=== PATIENT | male | born 1960 | race Caucasian/White ===

== ENCOUNTER 2017-09-26 06:03 | Observation (INO) | payer MEDICAID ==
--- NOTE | 2017-09-26 06:13 | ED PDOC ---
Arrival/HPI - General Time Seen by Provider: 09/26/17 06:12 Historian: Patient, Family - History of Present Illness Narrative History of Present Illness (Text): 09/26/17 06:13 Eve Prado is a 57 year old male, whose past medical history includes hypertension, who presents to the emergency department accompanied by family complaining of abdominal pain. Patient states, via daughter acting as musculoskeletal physiotherapist , he woke up this morning with epigastric abdominal pain, nausea, vomiting, and dizziness. Patient also reports subjective fever. Patient denies any chest pain , shortness of breath, diarrhea, urinary symptoms, back pain, neck pain, headache, or any other complaints. Symptom Onset: Gradual Symptom Course: Unchanged Activities at Onset: Light Context: Home Past Medical History - Provider Review Nursing Documentation Reviewed: Yes Family/Social History - Physician Review Nursing Documentation Reviewed: Yes Family/Social History: Unknown Family HX Allergies/Home Meds Allergies/Adverse Reactions: Allergies No Known Allergies Allergy (Verified 09/26/17 06:23) Home Medications: Home Meds Medication Instructions Recorded Confirmed Gemfibrozil [Lopid] 1 tab PO BID 09/26/17 09/26/17 Multivitamin with Iron [Tab-A-Mary 1 tab PO DAILY 09/26/17 09/26/17 with Iron] amLODIPine [Norvasc] 1 tab PO DAILY 09/26/17 09/26/17 Review of Systems - Physician Review All systems were reviewed & negative as marked: Yes - Review of Systems Constitutional: Fevers Eyes: Normal ENT: Normal Respiratory: Normal. absent: SOB, Cough Cardiovascular: Normal Gastrointestinal: Abdominal Pain, Nausea, Vomiting. absent: Diarrhea Genitourinary Male: Normal. absent: Dysuria, Frequency, Hematuria, Urinary Output Changes Musculoskeletal: Normal. absent: Back Pain, Neck Pain Skin: Normal. absent: Rash Neurological: Dizziness. absent: Headache Endocrine: Normal Hemo/Lymphatic: Normal Psychiatric: Normal Physical Exam Vital Signs Reviewed: Yes Vital Signs Temp Pulse Resp BP Pulse Ox 09/26/17 11:22 77 17 132/81 95 09/26/17 09:31 81 18 114/60 96 09/26/17 07:54 84 18 142/88 95 09/26/17 06:20 98.1 F 88 18 162/90 H 94 L Appearance: Positive for: Well-Appearing, Non-Toxic, Comfortable Pain Distress: None Mental Status: Positive for: Alert and Oriented X 3 - Systems Exam Head: Present: Atraumatic, Normocephalic Pupils: Present: PERRL Extroacular Muscles: Present: EOMI Conjunctiva: Present: Normal Mouth: Present: Moist Mucous Membranes Neck: Present: Normal Range of Motion Respiratory/Chest: Present: Clear to Auscultation, Good Air Exchange. No: Respiratory Distress, Accessory Muscle Use Cardiovascular: Present: Regular Rate and Rhythm, Normal S1, S2. No: Murmurs Abdomen: Present: Tenderness (Epigastric tenderness). No: Distention, Peritoneal Signs Back: Present: Normal Inspection Upper Extremity: Present: Normal Inspection. No: Cyanosis, Edema Lower Extremity: Present: Normal Inspection. No: Edema Neurological: Present: GCS=15, CN II-XII Intact, Speech Normal Skin: Present: Warm, Dry, Normal Color. No: Rashes Psychiatric: Present: Alert, Oriented x 3, Normal Insight, Normal Concentration Medical Decision Making ED Course and Treatment: 09/26/17 06:13 Impression: 57 year old male complaining of epigastric pain, nausea, vomiting, diarrhea, and subjective fever. Plan: -- EKG -- CXR -- Labs, lipase, amylase, cardiac enzymes, blood cultures -- Urinalysis -- IV fluids -- Morphine -- Zofran -- Pepcid -- Reassess and disposition Progress Notes: Reviewed EKG, NSR at [address] LAFB. Non-specific ST/T wave changes. - Lab Interpretations Lab Results: 09/26/17 06:40 09/26/17 06:40 Lab Results 09/26/17 12:50: Urine Color Yellow, Urine Appearance Clear, Urine pH 7.0, Ur Specific [place] 1.020, Urine Protein Negative, Urine Glucose (UA) Negative, Urine Ketones Negative, Urine Blood Negative, Urine Nitrate Negative, Urine Bilirubin Negative, Urine Urobilinogen 0.2, Ur Leukocyte Esterase Negative 09/26/17 06:40: Sodium 143, Potassium 3.7, Chloride 104, Carbon Dioxide 23, Anion Gap 20, BUN 10, Creatinine 0.6 L, Est GFR ( Amer) > 60, Est GFR ( Non-Af Amer) > 60, Random Glucose 156 H, Calcium 9.0, Total Bilirubin 0.4, AST 24, ALT 43, Alkaline Phosphatase 69, Lactate Dehydrogenase 374, Total Creatine Kinase 65, Troponin I < 0.01, Total Protein 7.4, Albumin 4.4, Globulin 3.1, Albumin/Globulin Ratio 1.4, Amylase 82, Lipase 37 09/26/17 06:40: PT 11.8, INR 1.03, APTT 24.4 L 09/26/17 06:40: WBC 3.1 L, RBC 5.53, Hgb 14.5, Hct 43.5, MCV 78.7 L, MCH 26.2, MCHC 33.3, RDW 13.2, Plt Count 175, MPV 11.0, Gran % 61.8, Lymph % (Auto) 29.9, [place] % (Auto) 7.4 H, Eos % (Auto) 0.6 L, Baso % (Auto) 0.3, Gran # 1.92, Lymph # (Auto) 0.9 L, [place] # (Auto) 0.2, Eos # (Auto) 0.0, Baso # (Auto) 0.01 - RAD Interpretation Radiology Orders: 09/26/17 06:26 CHEST PORTABLE [RAD] Stat 09/26/17 08:04 ABDOMEN COMPLETE [US] Stat 09/26/17 12:10 ABD & PELVIS IV CONTRAST ONLY [CT] Stat 09/26/17 12:12 HEAD W/O CONTRAST [CT] Stat - EKG Interpretation Interpreted by ED Physician: Yes Type: 12 lead EKG - Medication Orders Current Medication Orders: Sodium Chloride (Sodium Chloride 0.9%) 1,000 mls @ 100 mls/hr IV .Q10H STA Stop: 09/26/17 16:24 Last Admin: 09/26/17 07:35 Dose: 100 mls/hr eMAR Start Stop Document 09/26/17 07:35 HI (Rec: 09/26/17 07:35 HI [id number]) Intravenous Solution Start Date 09/26/17 Start Time 07:35 Discontinued Medications Famotidine (Pepcid) 20 mg IVP STAT STA Stop: 09/26/17 06:26 Last Admin: 09/26/17 07:35 Dose: 20 mg IVP Administration Document 09/26/17 07:35 HI (Rec: 09/26/17 07:35 HI [id number]) Charges for Administration # of IVP Administrations 1 Metoclopramide HCl (Reglan) 10 mg IVP STAT STA Stop: 09/26/17 12:10 Last Admin: 09/26/17 12:17 Dose: 10 mg IVP Administration Document 09/26/17 12:17 HI (Rec: 09/26/17 12:17 HI [id number]) Charges for Administration # of IVP Administrations 1 Morphine Sulfate (Morphine) 2 mg IVP STAT STA Stop: 09/26/17 06:26 Last Admin: 09/26/17 07:36 Dose: 2 mg MAR Pain Assessment Document 09/26/17 07:36 HI (Rec: 09/26/17 07:36 HI [id number]) Pain Reassessment Is this a pain reassessment? No Sleep Is patient sleeping during reassessment? No Presence of Pain Presence of Pain Yes Location Pain Location Body Site Abdomen IVP Administration Document 09/26/17 07:36 HI (Rec: 09/26/17 07:36 HI [id number]) Charges for Administration # of IVP Administrations 1 Ondansetron HCl (Zofran Inj) 4 mg IVP STAT STA Stop: 09/26/17 06:26 Last Admin: 09/26/17 07:35 Dose: 4 mg IVP Administration Document 09/26/17 07:35 HI (Rec: 09/26/17 07:35 HI [id number]) Charges for Administration # of IVP Administrations 1 - Transfer of Care Patient signed out to Dr:: janki labs and dispo - Scribe Statement The provider has reviewed the documentation as recorded by the Scribpeter Santana Provider Scribe Attestation: All medical record entries made by the Scribe were at my direction and personally dictated by me. I have reviewed the chart and agree that the record accurately reflects my personal performance of the history, physical exam, medical decision making, and the department course for this patient. I have also personally directed, reviewed, and agree with the discharge instructions and disposition. Disposition/Present on Arrival - Present on Arrival Any Indicators Present on Arrival: No - Disposition Have Diagnosis and Disposition been Completed?: Yes Diagnosis: Abdominal pain Disposition Time: 07:00 Condition: FAIR Referrals: Fidencio Alvarez MD [Primary Care Provider] - Follow up with primary Forms: NicOx (Syrian)
[2017-09-26] MEDS ORDERED: Morphine 2 mg/ml ISec IVP STA (06:25)
[2017-09-26] MEDS ORDERED: Sodium Chloride 0.9% 1,000 ML IV STA (06:25)
[2017-09-26 07:10] LABS: BASO # 0.01 K/mm3 (0.0-2.0); BASO % 0.3 % (0.0-3.0); EOS % 0.6 % (1.5-5.0); GRAN # 1.92 (1.4-6.5); GRAN % 61.8 % (50.0-68.0); HEMOGLOBIN 14.5 g/dL (14.0-18.0); LYMPH # 0.9 (1.2-3.4); LYMPH % 29.9 % (22.0-35.0); MEAN CELL VOLUME 78.7 fl (80.0-105.0); MEAN CORPUSCULAR HEMOGLOBIN 26.2 pg (25.0-35.0); MEAN CORPUSCULAR HGB CONC 33.3 g/dl (31.0-37.0); MONO # 0.2 (0.1-0.6); MONO % 7.4 % (1.0-6.0); RBC 5.53 10^6/uL (3.5-6.1); RED CELL DISTRIBUTION WIDTH 13.2 % (11.5-14.5); WHITE BLOOD COUNT 3.1 10^3/ul (4.5-11.0)
[2017-09-26 07:20] LABS: ALB/GLOB RATIO 1.4 (1.1-1.8); ALBUMIN 4.4 g/dL (3.0-4.8); ALT/SGPT 43 U/L (7-56); AMYLASE 82 U/L (35-125); AST/SGOT 24 U/L (17-59); BLOOD UREA NITROGEN 10 mg/dL (7-21); GFR AFRICAN-AMERICAN > 60; GFR NON-AFRICAN AMERICAN > 60; LIPASE 37 U/L (23-300)
[2017-09-26 07:24] LABS: INR 1.03; PARTIAL THROMBOPLASTIN TIME 24.4 Seconds (25.1-36.5); PROTHROMBIN TIME 11.8 SECONDS (9.4-12.5)
[2017-09-26 07:30] LABS: TROPONIN I < 0.01 ng/mL
--- NOTE | 2017-09-26 08:22 | ED PDOC ---
Physical Exam Vital Signs Reviewed: Yes Vital Signs Temp Pulse Resp BP Pulse Ox 09/26/17 15:15 84 16 133/70 97 09/26/17 11:22 77 17 132/81 95 09/26/17 09:31 81 18 114/60 96 09/26/17 07:54 84 18 142/88 95 09/26/17 06:20 98.1 F 88 18 162/90 H 94 L Temperature: Afebrile Blood Pressure: Hypertensive Pulse: Regular Respiratory Rate: Normal - Systems Exam Abdomen: Present: Tenderness (tenderness in epigastric and RUQ of abdomen) Medical Decision Making ED Course and Treatment: ED Course and Treatment: 09/26/17 07:00 Case endorsed to me by Dr. Gerard for pending Chest X-Ray/reassessment/ disposition 09/26/17 07:45 I reevaluated patient. Patient's symptoms are improving, but patient is still having epigastric abdominal pain. Patient no longer feels nauseous and is going to get abdominal ultrasound. R/o biliary colic and acute cholecystitis. Translation provided by daughter, as per patient's request. (Daughter is 18 years old) Ultrasound of abdomen reviewed by radiologist, shows: Creator : Matthew Hernadez MD IMPRESSION: Mild hepatomegaly with diffuse fatty infiltration of the liver. No evidence of cholelithiasis or cholecystitis. Chest X-ray reviewed by radiologist, shows: Creator : Matthew Hernadez MD IMPRESSION: No active disease. 09/26/17 11:15 Patient was feeling much better but still a little dizzy. Abdomen soft and not tender. He would like something to eat. Food ordered. 09/26/17 12:12 Patient consistently dizzy. He vomited in the ED. Reglan IV ordered. CT Head and Abdomen ordered. 09/26/17 15:33 Patient continued to feel dizzy. No improvement with antivert reglan and meclizine. CT Head negative. CT Abd report reviewed. Patient states that it started with dizzines, then nausea and then abdominal pain. He will be admitted for persistent dizziness r/o CVA. 09/26/17 15:52 Case was discussed with Dr. Rangel for persistent dizziness r/o cva and consult placed for Dr. Gonzalez division supervisor. I informed Dr. Gonzalez of the case. - Lab Interpretations Lab Results: 09/26/17 06:40 09/26/17 06:40 Lab Results 09/26/17 12:50: Urine Color Yellow, Urine Appearance Clear, Urine pH 7.0, Ur Specific [place] 1.020, Urine Protein Negative, Urine Glucose (UA) Negative, Urine Ketones Negative, Urine Blood Negative, Urine Nitrate Negative, Urine Bilirubin Negative, Urine Urobilinogen 0.2, Ur Leukocyte Esterase Negative 09/26/17 06:40: Sodium 143, Potassium 3.7, Chloride 104, Carbon Dioxide 23, Anion Gap 20, BUN 10, Creatinine 0.6 L, Est GFR ( Amer) > 60, Est GFR ( Non-Af Amer) > 60, Random Glucose 156 H, Calcium 9.0, Total Bilirubin 0.4, AST 24, ALT 43, Alkaline Phosphatase 69, Lactate Dehydrogenase 374, Total Creatine Kinase 65, Troponin I < 0.01, Total Protein 7.4, Albumin 4.4, Globulin 3.1, Albumin/Globulin Ratio 1.4, Amylase 82, Lipase 37 09/26/17 06:40: PT 11.8, INR 1.03, APTT 24.4 L 09/26/17 06:40: WBC 3.1 L, RBC 5.53, Hgb 14.5, Hct 43.5, MCV 78.7 L, MCH 26.2, MCHC 33.3, RDW 13.2, Plt Count 175, MPV 11.0, Gran % 61.8, Lymph % (Auto) 29.9, [place] % (Auto) 7.4 H, Eos % (Auto) 0.6 L, Baso % (Auto) 0.3, Gran # 1.92, Lymph # (Auto) 0.9 L, [place] # (Auto) 0.2, Eos # (Auto) 0.0, Baso # (Auto) 0.01 - RAD Interpretation Radiology Orders: 09/26/17 06:26 CHEST PORTABLE [RAD] Stat 09/26/17 08:04 ABDOMEN COMPLETE [US] Stat 09/26/17 12:10 ABD & PELVIS IV CONTRAST ONLY [CT] Stat 09/26/17 12:12 HEAD W/O CONTRAST [CT] Stat Nondestructive Tester: Radiologist - Medication Orders Current Medication Orders: Sodium Chloride (Sodium Chloride 0.9%) 1,000 mls @ 100 mls/hr IV .Q10H STA Stop: 09/26/17 16:24 Last Admin: 09/26/17 07:35 Dose: 100 mls/hr eMAR Start Stop Document 09/26/17 07:35 HI (Rec: 09/26/17 07:35 HI [id number]) Intravenous Solution Start Date 09/26/17 Start Time 07:35 Meclizine HCl (Antivert) 25 mg PO STAT STA Stop: 09/26/17 15:40 Discontinued Medications Famotidine (Pepcid) 20 mg IVP STAT STA Stop: 09/26/17 06:26 Last Admin: 09/26/17 07:35 Dose: 20 mg IVP Administration Document 09/26/17 07:35 HI (Rec: 09/26/17 07:35 HI [id number]) Charges for Administration # of IVP Administrations 1 Metoclopramide HCl (Reglan) 10 mg IVP STAT STA Stop: 09/26/17 12:10 Last Admin: 09/26/17 12:17 Dose: 10 mg IVP Administration Document 09/26/17 12:17 HI (Rec: 09/26/17 12:17 HI [id number]) Charges for Administration # of IVP Administrations 1 Morphine Sulfate (Morphine) 2 mg IVP STAT STA Stop: 09/26/17 06:26 Last Admin: 09/26/17 07:36 Dose: 2 mg MAR Pain Assessment Document 09/26/17 07:36 HI (Rec: 09/26/17 07:36 HI [id number]) Pain Reassessment Is this a pain reassessment? No Sleep Is patient sleeping during reassessment? No Presence of Pain Presence of Pain Yes Location Pain Location Body Site Abdomen IVP Administration Document 09/26/17 07:36 HI (Rec: 09/26/17 07:36 HI [id number]) Charges for Administration # of IVP Administrations 1 Ondansetron HCl (Zofran Inj) 4 mg IVP STAT STA Stop: 09/26/17 06:26 Last Admin: 09/26/17 07:35 Dose: 4 mg IVP Administration Document 09/26/17 07:35 HI (Rec: 09/26/17 07:35 HI [id number]) Charges for Administration # of IVP Administrations 1 - Scribe Statement The provider has reviewed the documentation as recorded by the Scribe Sara Anaya All medical record entries made by the Scribe were at my direction and personally dictated by me. I have reviewed the chart and agree that the record accurately reflects my personal performance of the history, physical exam, medical decision making, and the department course for this patient. I have also personally directed, reviewed, and agree with the discharge instructions and disposition. Disposition/Present on Arrival - Present on Arrival Any Indicators Present on Arrival: No History of DVT/PE: No History of Uncontrolled Diabetes: No Urinary Catheter: No History of Decub. Ulcer: No History Surgical Site Infection Following: None - Disposition Have Diagnosis and Disposition been Completed?: Yes Diagnosis: Abdominal pain, Dizziness Disposition Time: 15:36 Patient Plan: Observation Patient Problems: Current Active Problems Problem Status Onset Abdominal pain Acute Dizziness Acute Condition: FAIR Referrals: Fidencio Alvarez MD [Primary Care Provider] - Follow up with primary Forms: ASSET4 (Y[place]i) NIHSS Scale ([place]) Time Performed: 15:37 - How Severe is the [place] Baseline Level of Consciousness: 0=Alert LOC to Questions: 0=Both comments correct LOC to commands: 0=Obeys both correctly Best Gaze: 0=Normal Visual: 0=No visual loss Facial: 0=Normal Motor Arm - Left: 0=No drift Motor Arm - Right: 0=No drift Motor Leg - Left: 0=No drift Motor Leg - Right: 0=No drift Limb Ataxia: 0=Absent Sensory: 0=Normal Best Language: 0=No aphasia Dysarthia: 0=Normal articulation Extinction & Inattention (Neglect): 0=Normal, no object Score: 0 Risk Level: No Stroke Risk rTPA Inclusion/Exclusion - Refusal of Treatment Patient Refused Treatment: No - Inclusion Criteria for Altepase Patient is 18 years or Older: Yes The Clinical Diagnosis of Ischemic Stroke That is Causing a Potentially Disabling Neurological Deficit: No Time of Onset is Well Established to be Less Than 270 Minute Before Treatment Would Begin: No Risk/Benefit Discussed With Patient/Family Member Present: No
--- NOTE | 2017-09-26 09:08 | US ---
Date of service: 09/26/2017 HISTORY: ruq abd pain COMPARISON: None. TECHNIQUE: Sonographic evaluation of the abdomen. FINDINGS: LIVER: Measures 19.9 cm. Diffusely increased echogenicity of the liver parenchyma. Consistent with fatty infiltration. No mass. Smooth contour. No biliary ductal dilatation. GALLBLADDER: Unremarkable. No gallstones. COMMON BILE DUCT: Measures 6 mm. No stones. No dilatation. PANCREAS: Unremarkable as visualized. No mass. No ductal dilatation. RIGHT KIDNEY: Measures cm. 11.4 LEFT KIDNEY: Measures 11.6cm. Normal echogenicity. No calculus, mass, or hydronephrosis. SPLEEN: Normal in size and contour. No mass. AORTA: No aneurysmal dilatation. IVC: Unremarkable. OTHER FINDINGS: None. IMPRESSION: Mild hepatomegaly with diffuse fatty infiltration of the liver. No evidence of cholelithiasis or cholecystitis.
--- NOTE | 2017-09-26 09:17 | RAD ---
Date of service: 09/26/2017 HISTORY: abd pain COMPARISON: No prior. FINDINGS: LUNGS: No active pulmonary disease. PLEURA: No significant pleural effusion identified, no pneumothorax apparent. CARDIOVASCULAR: Normal. OSSEOUS STRUCTURES: No significant abnormalities. VISUALIZED UPPER ABDOMEN: Normal. OTHER FINDINGS: None. IMPRESSION: No active disease.
--- NOTE | 2017-09-26 10:08 | CARD ---
APPROVED REPORT Date of service: 09/26/2017 EKG Measurement Heart [id number] <Conclusion> Normal sinus rhythm Left anterior fascicular block Abnormal ECG
[2017-09-26 13:06] LABS: URINE APPEARANCE CLEAR (CLEAR); URINE BILIRUBIN NEGATIVE (NEGATIVE); URINE BLOOD NEGATIVE (NEGATIVE); URINE COLOR YELLOW (YELLOW); URINE GLUCOSE (UA) NEGATIVE (NEGATIVE); URINE LEUKOCYTE ESTERASE NEGATIVE Leu/uL (NEGATIVE); URINE PROTEIN NEGATIVE mg/dL (<30 mg/dL); URINE UROBILINOGEN 0.2 E.U./dL (<1 E.U./dL)
--- NOTE | 2017-09-26 14:48 | CT ---
Date of service: 09/26/2017 PROCEDURE: CT HEAD WITHOUT CONTRAST. HISTORY: dizziness COMPARISON: None available. TECHNIQUE: Axial computed tomography images were obtained through the head/brain without intravenous contrast. Radiation dose: Total exam DLP = 884 mGy-cm. This CT exam was performed using one or more of the following dose reduction techniques: Automated exposure control, adjustment of the mA and/or kV according to patient size, and/or use of iterative reconstruction technique. FINDINGS: HEMORRHAGE: No intracranial hemorrhage. BRAIN: No mass effect or edema. No atrophy or chronic microvascular ischemic changes. VENTRICLES: Unremarkable. No hydrocephalus. CALVARIUM: Unremarkable. PARANASAL SINUSES: Unremarkable as visualized. No significant inflammatory changes. MASTOID AIR CELLS: Unremarkable as visualized. No inflammatory changes. OTHER FINDINGS: None. IMPRESSION: No acute findings
--- NOTE | 2017-09-26 14:54 | CT ---
Date of service: 09/26/2017 PROCEDURE: CT Abdomen and Pelvis with contrast HISTORY: abd pain/vomitng COMPARISON: None. TECHNIQUE: Contrast dose: 150 cc of Omni 350 Radiation dose: Total exam DLP = 1515 mGy-cm. This CT exam was performed using one or more of the following dose reduction techniques: Automated exposure control, adjustment of the mA and/or kV according to patient size, and/or use of iterative reconstruction technique. FINDINGS: LOWER THORAX: Unremarkable. LIVER: Unremarkable. No gross lesion or ductal dilatation. GALLBLADDER AND BILE DUCTS: Unremarkable. PANCREAS: Unremarkable. No gross lesion or ductal dilatation. SPLEEN: Unremarkable. ADRENALS: Unremarkable. No mass. KIDNEYS AND URETERS: Unremarkable. No hydronephrosis. No solid mass. VASCULATURE: Unremarkable. No aortic aneurysm. BOWEL: Unremarkable. No obstruction. No gross mural thickening. APPENDIX: Normal appendix. PERITONEUM: Unremarkable. No free fluid. No free air. LYMPH NODES: Unremarkable. No enlarged lymph nodes. BLADDER: Unremarkable. REPRODUCTIVE: Unremarkable. BONES: No acute fracture. OTHER FINDINGS: None. IMPRESSION: No acute findings
--- NOTE | 2017-09-26 17:50 | CP.PCM.HP ---
<Justice Mujica - Last Filed: 09/26/17 20:16> History of Present Illness - History of Present Illness History of Present Illness: Justice Mujica D.O PGY-1, H & P for CC: Dizziness and vomiting HPI: Patient is a 57 year old male with PMH of HTN and HLD presenting to the ED with dizziness and vomiting that started last night. Patient states that he went to sleep last night and woke up feeling dizzy and started to vomit. He states that he vomited 8 times last night and 10 times today. He describes the vomitus to be non-bloody and yellowish in color. Patient admits to having 3 episodes of the same symptoms in the past 2 years and the last episode was last year. He states that the symptoms usually resolves after 3 days of taking medications from his doctor. Patient admits to have blurry vision when he is moving from a sitting to standing position and also ringing in both ears that accompanies his dizziness. Patient denies fever, chills, chest pain, shortness of breath, diarrhea, and urinary symptoms. 12 point ROS negative except as indicated in HPI Past medical history: HTN, HLD Surgical History: Hernia repair Allergies: NKDA Social History: Denies alcohol, tobacco, and drug use. Works at a fast food restaurant. Family History: Father has HTN Medications: Gemfibrozil 600mg BID, Meclizine 25mg TID, Norvasc 5mg QD, Multivitamin PMD: Dr. Alvarez Pension Consultant: [facility] [id number] Present on Admission - Present on Admission Any Indicators Present on Admission: No History of DVT/PE: No History of Uncontrolled Diabetes: No Urinary Catheter: No Decubitus Ulcer Present: No Past Patient History - Infectious Disease Hx of Infectious Diseases: None - Past Social History Smoking Status: Never Smoked - CARDIAC Hx Hypertension: Yes - PSYCHIATRIC Hx Substance Use: No - SURGICAL HISTORY Hx Surgeries: Yes Other/Comment: cant recall what sx he had - ANESTHESIA Hx Anesthesia: Yes Hx Anesthesia Reactions: No Hx Malignant Hyperthermia: No Meds Allergies/Adverse Reactions: Allergies Allergy/AdvReac Type Severity Reaction Status Date / Time No Known Allergies Allergy Verified 09/26/17 06:23 Physical Exam - Constitutional Appears: No Acute Distress - Head Exam Head Exam: ATRAUMATIC, NORMAL INSPECTION - Eye Exam Eye Exam: Normal appearance, PERRL - ENT Exam ENT Exam: Mucous Membranes Moist - Respiratory Exam Respiratory Exam: Clear to Auscultation Bilateral. absent: Rales, Rhonchi, Wheezes - Cardiovascular Exam Cardiovascular Exam: REGULAR RHYTHM, +S1, +S2. absent: Gallop, Rubs, Systolic Murmur - GI/Abdominal Exam GI & Abdominal Exam: Normal Bowel Sounds, Soft, Tenderness Additional comments: Epigastric tenderness - Extremities Exam Extremities exam: Positive for: normal inspection. Negative for: calf tenderness, pedal edema - Neurological Exam Neurological exam: Alert, CN II-XII Intact, Oriented x3 Additional comments: Muscle strength 5/5 and sensations intact in both upper and lower extremities. Normal speech. - Psychiatric Exam Psychiatric exam: Normal Affect, Normal Mood - Skin Skin Exam: Dry, Intact, Warm Results - Vital Signs Recent Vital Signs: Last Vital Signs Temp 98.1 F 09/26/17 06:20 Pulse 83 09/26/17 17:47 Resp 16 09/26/17 17:47 BP 146/91 H 09/26/17 17:47 Pulse Ox 95 09/26/17 17:47 - Labs Result Diagrams: 09/26/17 06:40 09/26/17 06:40 Assessment & Plan - Assessment and Plan (Free Text) Assessment: Patient is a 57 year old male with PMH of HTN and HLD and is admitted for dizziness and vomiting. Plan: Dizziness and vomiting - most likely secondary to BPPV vs vertigo - need to rule out CVA - Lipid panel, HbA1C ordered - PT/OT - Neurology consulted, Dr. Gonzalez - c/w Meclizine 25mg PO TID - passed bedside speech and swallow - started ASA 81mg - Zofran 4mg IV Q6H PRN - Brain MRI ordered - Carotid duplex ordered - orthostatic vitals ordered History of hypertension - c/w home medication Norvasc 5mg QD - continue to monitor blood pressure History of hyperlipidemia - continue with home medication Gemfibrozil 600mg BID - Lipid panel ordered GI/DVT prophylaxis: Protonix and SCD's Patient seen, case reviewed, and plan approved by attending physician, Dr. Brennan <Luis Brennan - Last Filed: 09/27/17 06:51> Results - Vital Signs Recent Vital Signs: Last Vital Signs Temp 98.1 F 09/26/17 19:15 Pulse 79 09/27/17 06:00 Resp 18 09/26/17 19:15 BP 151/101 H 09/26/17 20:09 Pulse Ox 95 09/26/17 17:47 - Labs Result Diagrams: 09/26/17 06:40 09/26/17 06:40 Attending/Attestation - Attestation I have personally seen and examined this patient.: Yes I have fully participated in the care of the patient.: Yes I have reviewed all pertinent clinical information: Yes Notes (Text): 09/26/17 57 year old male with past medical history of hypertension and dyslipidemia who presents with complaint of dizziness with intractable nausea/vomiting. CT head was negative for acute findings. CT abd/pelvis was negative as well. US abdomen showed fatty liver. Neurology evaluation was appreciated. PT evaluation and MRI brain study is ordered. Obtain orthostatics. Patient is on meclizine prn. Continue with home medications. Coontinue with diet as tolerated. Luis Brennan MD Hospitalist.
--- NOTE | 2017-09-26 21:39 | CP.PCM.CON ---
History of Present Illness - History of Present Illness History of Present Illness: Tigre Ashley PGY2 Neurology Consult Note for Dr. Gonzalez Mr. Prado is a 57-year-old [place] male with a PMH of HTN, HLD and 2 prior episodes of otitis media who presented to the ED with positional dizziness and vomiting 1 day. The patient states that he feels comfortable when laying down on his left shoulder, but when he tries to get up or lay on his back, he begins to feel dizzy, experiences blurriness of vision, ringing in his ears and becomes nauseous and starts vomiting. His vomitus is not biliary and nonbloody. He denies any new foods or changes in diet habits. In fact the patient states that he is currently fasting for jainism purposes. The patient states that he had 2 episodes of "inflammation of the middle ear" before and was treated once in [place] and once at his [facility] office with one drug for his dizziness and another for vomiting; he doesn't recall the names. The patient denies any fevers, chills, travel outside the country, sick contacts, chest pain or shortness of breath, abdominal pain, diarrhea or any urinary symptoms, or any numbness and tingling in the extremities. A 12 point ROS was reviewed and is otherwise unremarkable. PMD: Dr. Alvarez PMH: As above PSH: Hernia repair 2 Meds: As per MAR, reviewed Allergies: NKDA SHx: Former EtOH use: Denied tobacco or drug use. Works at [employer] FHx: Father HTN Review of Systems - Review of Systems All systems: reviewed and no additional remarkable complaints except (as per HPI ) Past Patient History - Infectious Disease Hx of Infectious Diseases: None - Past Medical History & Family History Past Medical History?: Yes Past Family History: Reviewed and not pertinent - Past Social History Smoking Status: Never Smoked Alcohol: None Drugs: Denies Home Situation {Lives}: With Family - CARDIAC Hx Hypercholesterolemia: Yes Hx Hypertension: Yes - PULMONARY Hx Respiratory Disorders: No - NEUROLOGICAL Hx Neurological Disorder: No - HEENT Hx HEENT Problems: Yes (otitis media x2 ) - RENAL Hx Chronic Kidney Disease: No - ENDOCRINE/METABOLIC Hx Endocrine Disorders: No - HEMATOLOGICAL/ONCOLOGICAL Hx Blood Disorders: No - INTEGUMENTARY Hx Dermatological Problems: No - MUSCULOSKELETAL/RHEUMATOLOGICAL Hx Musculoskeletal Disorders: No - GASTROINTESTINAL Hx Gastrointestinal Disorders: No - GENITOURINARY/GYNECOLOGICAL Hx Genitourinary Disorders: No - PSYCHIATRIC Hx Psychophysiologic Disorder: No Hx Substance Use: No - SURGICAL HISTORY Hx Surgeries: Yes Hx Herniorrhaphy: Yes (x2) - ANESTHESIA Hx Anesthesia: Yes Hx Anesthesia Reactions: No Hx Malignant Hyperthermia: No Meds Allergies/Adverse Reactions: Allergies Allergy/AdvReac Type Severity Reaction Status Date / Time No Known Allergies Allergy Verified 09/26/17 06:23 - Medications Medications: Current Medications Acetaminophen (Tylenol 325mg Tab) 325 mg PO DAILY PRN PRN Reason: Headache Last Admin: 09/26/17 20:08 Dose: 325 mg Amlodipine Besylate (Norvasc) 5 mg PO DAILY [facility] Aspirin (Aspirin Chewable) 81 mg PO DAILY [facility] Last Admin: 09/26/17 18:03 Dose: 81 mg Gemfibrozil (Lopid) 600 mg PO BID [facility] Meclizine HCl (Antivert) 25 mg PO TID [facility] Meclizine HCl (Antivert) 25 mg PO ONCE ONE Stop: 09/27/17 02:01 Multivitamins/Minerals (Therapeutic-M Tab) 1 tab PO DAILY [facility] Ondansetron HCl (Zofran Inj) 4 mg IVP Q6H PRN PRN Reason: Nausea/Vomiting Pantoprazole Sodium (Protonix Inj) 40 mg IVP DAILY [facility] Physical Exam - Constitutional Appears: Well, Non-toxic, In Acute Distress - Head Exam Head Exam: ATRAUMATIC, NORMAL INSPECTION - Eye Exam Eye Exam: EOMI, Normal appearance, PERRL. absent: Nystagmus Pupil Exam: NORMAL ACCOMODATION - ENT Exam ENT Exam: Normal Exam - Neck Exam Neck exam: Positive for: Normal Inspection. Negative for: Meningismus - Respiratory Exam Respiratory Exam: NORMAL BREATHING PATTERN. absent: Respiratory Distress - Cardiovascular Exam Cardiovascular Exam: RRR, +S1, +S2 - GI/Abdominal Exam GI & Abdominal Exam: Soft. absent: Distended, Tenderness - Extremities Exam Extremities exam: Positive for: normal inspection - Back Exam Back exam: NORMAL INSPECTION - Neurological Exam Neurological exam: Alert, CN II-XII Intact, Normal Gait, Oriented x3, Reflexes Normal Additional comments: no facial asymmetrical motor/sensory function no CN7 deficits muscle strength 5/5 x4 extremities - Skin Skin Exam: Warm Results - Vital Signs Recent Vital Signs: Last Vital Signs Temp 98.1 F 09/26/17 06:20 Pulse 83 09/26/17 17:47 Resp 16 09/26/17 17:47 BP 151/101 H 09/26/17 20:09 Pulse Ox 95 09/26/17 17:47 - Labs Result Diagrams: 09/26/17 06:40 09/26/17 06:40 Assessment & Plan - Assessment and Plan (Free Text) Assessment: 57-year-old [place] male with a PMH of HTN, HLD and otitis media who presents with several episodes of vomiting associated with dizziness, ringing in his ears and blurry vision that are associated with positional changes. There does not appear to be immediate infectious causes, and abdominal ultrasound shows mild hepatomegaly with diffuse fatty infiltration of the liver, but no evidence of cholelithiasis or cholecystitis. CT head reviewed and shows no signs of hemorrhage or other acute findings. EKG reviewed and is NSR at 79 with left anterior fascicular block. CT abdomen/pelvis with contrast was unremarkable. Etiology of symptoms likely due to benign paroxysmal positional vertigo versus vestibular neuritis/labyrinthitis, will need to rule out acoustic neuroma. NIHSS score was 0 in ED, and CVA is likely not cause of symptoms. Plan: Positional dizziness, vomiting and visual/auditory changes - MRI brain ordered - Continue home meclizine - Zofran PRN nausea/vomiting - PT eval - Monitor on remote telemetry service - GI and DVT DPX - BP control - Check A1c and lipid panel - Further recs per Dr. Gonzalez Case was reviewed and discussed with attending, Dr. Carlos Ashley PGY2
[2017-09-27 06:29] LABS: HEMOGLOBIN 14.5 g/dL (14.0-18.0); MEAN CELL VOLUME 79.2 fl (80.0-105.0); MEAN CORPUSCULAR HEMOGLOBIN 26.2 pg (25.0-35.0); MEAN CORPUSCULAR HGB CONC 33.1 g/dl (31.0-37.0); MEAN PLATELET VOLUME 10.9 fl (7.0-11.0); RBC 5.53 10^6/uL (3.5-6.1); RED CELL DISTRIBUTION WIDTH 13.4 % (11.5-14.5); WHITE BLOOD COUNT 5.3 10^3/ul (4.5-11.0)
[2017-09-27 06:54] LABS: LDL CHOLESTEROL 91 mg/dL (0-129)
[2017-09-27 06:59] LABS: ALB/GLOB RATIO 1.3 (1.1-1.8); ALT/SGPT 36 U/L (7-56); AST/SGOT 24 U/L (17-59); BLOOD UREA NITROGEN 11 mg/dL (7-21); GFR AFRICAN-AMERICAN > 60; GFR NON-AFRICAN AMERICAN > 60; HDL CHOLESTEROL 29 mg/dL (29-60)
[2017-09-27 08:08] VITALS: RESP 20
[2017-09-27] MEDS ORDERED: Gadodiamide 287 MG/ML VIAL (20ML) IV ONE (08:34)
[2017-09-27] MEDS ORDERED: Iohexol 350 MG/100 ML VIAL ONE (08:57)
--- NOTE | 2017-09-27 09:21 | CP.PCM.PN ---
<Tigre Ashley - Last Filed: 09/27/17 09:18> Subjective - Date & Time of Evaluation Date of Evaluation: 09/27/17 Time of Evaluation: 07:18 - Subjective Subjective: Tigre Ashley PGY2 Neurology Progress Note for Dr. Tellez Patient was seen and examined at bedside. He denies any acute overnight events. Denies any nausea/vomiting or dizziness since coming up to the medical floors. He was able to ambulate and use the restroom with no issues. He denies other complaints of chest pain, shortness of breath, abdominal pain, trouble urinating or constipation. He is tolerating his diet. Objective - Vital Signs/Intake and Output Vital Signs (last 24 hours): Temp Pulse Resp BP Pulse Ox 98.5 F 87 20 133/80 91 L 09/27/17 08:07 09/27/17 08:07 09/27/17 08:07 09/27/17 08:07 09/27/17 08:07 Intake and Output: 09/27/17 09/27/17 06:59 18:59 Intake Total 240 Output Total 400 Balance -160 - Medications Medications: Current Medications Acetaminophen (Tylenol 325mg Tab) 325 mg PO DAILY PRN PRN Reason: Headache Last Admin: 09/26/17 20:08 Dose: 325 mg Amlodipine Besylate (Norvasc) 5 mg PO DAILY [facility] Aspirin (Aspirin Chewable) 81 mg PO DAILY [facility] Last Admin: 09/26/17 18:03 Dose: 81 mg Gemfibrozil (Lopid) 600 mg PO BID [facility] Meclizine HCl (Antivert) 25 mg PO TID [facility] Multivitamins/Minerals (Therapeutic-M Tab) 1 tab PO DAILY [facility] Ondansetron HCl (Zofran Inj) 4 mg IVP Q6H PRN PRN Reason: Nausea/Vomiting Pantoprazole Sodium (Protonix Inj) 40 mg IVP DAILY [facility] - Labs Labs: 09/27/17 05:30 09/27/17 05:30 PT 11.8 SECONDS (9.4-12.5) 09/26/17 06:40 INR 1.03 09/26/17 06:40 APTT 24.4 Seconds (25.1-36.5) L 09/26/17 06:40 - Additional Findings Additional findings: - Constitutional Appears: Well, Non-toxic, In Acute Distress - Head Exam Head Exam: ATRAUMATIC, NORMAL INSPECTION - Eye Exam Eye Exam: EOMI, Normal appearance, PERRL. absent: Nystagmus Pupil Exam: NORMAL ACCOMODATION - ENT Exam ENT Exam: Normal Exam - Neck Exam Neck exam: Positive for: Normal Inspection. Negative for: Meningismus - Respiratory Exam Respiratory Exam: NORMAL BREATHING PATTERN. absent: Respiratory Distress - Cardiovascular Exam Cardiovascular Exam: RRR, +S1, +S2 - GI/Abdominal Exam GI & Abdominal Exam: Soft. absent: Distended, Tenderness - Extremities Exam Extremities exam: Positive for: normal inspection - Back Exam Back exam: NORMAL INSPECTION - Neurological Exam Neurological exam: Alert, CN II-XII Intact, Normal Gait, Oriented x3, Reflexes Normal Additional comments: no facial asymmetrical motor/sensory function no CN7 deficits muscle strength 5/5 x4 extremities - Skin Skin Exam: Warm Assessment and Plan - Assessment and Plan (Free Text) Assessment: 57-year-old [place] male with a PMH of HTN, HLD and otitis media who presents with several episodes of vomiting associated with dizziness, ringing in his ears and blurry vision that are associated with positional changes. There does not appear to be immediate infectious causes, and abdominal ultrasound shows mild hepatomegaly with diffuse fatty infiltration of the liver, but no evidence of cholelithiasis or cholecystitis. CT head reviewed and shows no signs of hemorrhage or other acute findings. EKG reviewed and is NSR at 79 with left anterior fascicular block. CT abdomen/pelvis with contrast was unremarkable. Etiology of symptoms likely due to benign paroxysmal positional vertigo versus vestibular neuritis/labyrinthitis, will need to rule out acoustic neuroma. NIHSS score was 0 in ED, and CVA is likely not cause of symptoms. Plan: Positional dizziness, vomiting and visual/auditory changes - MRI brain done, pending official read - CTA head/neck done, pending official read - Echo pending - Continue home meclizine - Zofran PRN nausea/vomiting - PT eval pending - Monitor on remote telemetry service - GI and DVT ppx - BP control - Further recs per Dr. Tellez Case was reviewed and discussed with attending, Dr. Carlos Ashley PGY2 <Marylin Tellez - Last Filed: 09/27/17 11:10> Objective - Vital Signs/Intake and Output Vital Signs (last 24 hours): Temp Pulse Resp BP Pulse Ox 98.5 F 87 20 133/80 91 L 09/27/17 08:07 09/27/17 09:45 09/27/17 08:07 09/27/17 09:45 09/27/17 08:07 Intake and Output: 09/27/17 09/27/17 06:59 18:59 Intake Total 240 Output Total 400 Balance -160 - Medications Medications: Current Medications Acetaminophen (Tylenol 325mg Tab) 325 mg PO DAILY PRN PRN Reason: Headache Last Admin: 09/26/17 20:08 Dose: 325 mg Amlodipine Besylate (Norvasc) 5 mg PO DAILY [facility] Last Admin: 09/27/17 09:45 Dose: 5 mg Aspirin (Aspirin Chewable) 81 mg PO DAILY [facility] Last Admin: 09/27/17 09:45 Dose: 81 mg Gemfibrozil (Lopid) 600 mg PO BID [facility] Last Admin: 09/27/17 09:44 Dose: 600 mg Meclizine HCl (Antivert) 25 mg PO TID [facility] Last Admin: 09/27/17 09:44 Dose: 25 mg Multivitamins/Minerals (Therapeutic-M Tab) 1 tab PO DAILY [facility] Last Admin: 09/27/17 09:44 Dose: 1 tab Ondansetron HCl (Zofran Inj) 4 mg IVP Q6H PRN PRN Reason: Nausea/Vomiting Pantoprazole Sodium (Protonix Inj) 40 mg IVP DAILY [facility] Last Admin: 09/27/17 09:45 Dose: 40 mg - Labs Labs: 09/27/17 05:30 09/27/17 05:30 PT 11.8 SECONDS (9.4-12.5) 09/26/17 06:40 INR 1.03 09/26/17 06:40 APTT 24.4 Seconds (25.1-36.5) L 09/26/17 06:40 Assessment and Plan - Assessment and Plan (Free Text) Plan: Neurology Attending attestation: I have reviewed the chart and agree that the record accurately reflects my personal performance of the history, physical exam, medical decision making, and the department course for this patient. I have also personally directed, reviewed, and agree with the assessment and plan. In brief, has symptoms of dizziness that may be vertiginous in nature , now with normal MRI Brain. CTA results are pending. PLan: 1. Follow up CTA results Dr. tellez
[2017-09-27] MEDS: Multivitamin With Minerals Tab PO SCH (09:44)
--- NOTE | 2017-09-27 10:07 | MRI ---
Date of service: 09/27/2017 PROCEDURE: MRI BRAIN WITH AND WITHOUT CONTRAST HISTORY: Rule out CVA COMPARISON: None available. TECHNIQUE: Multiplanar, multisequence MR images of the brain were obtained with and without intravenous contrast enhancement. 20 cc of Omniscan FINDINGS: HEMORRHAGE: None DWI: No evidence of an acute or early subacute infarction. BRAIN PARENCHYMA: No mass,mass effect or edema. No atrophy or chronic microvascular ischemic changes. ENHANCEMENT: No abnormal intracranial enhancement. VENTRICLES: Unremarkable. No hydrocephalus. CRANIUM: Unremarkable. ORBITS: Grossly unremarkable. PARANASAL SINUSES/MASTOIDS: Clear VASCULAR SYSTEM: Skull base flow voids intact. OTHER FINDINGS: None . IMPRESSION: Unremarkable pre and post contrast enhanced MRI of the brain.
--- NOTE | 2017-09-27 11:45 | CARD ---
APPROVED REPORT Date of service: 09/27/2017 EXAM: Two-dimensional and M-mode echocardiogram with Doppler and color Doppler. INDICATION LVFX/ 2D DIMENSIONS Left Atrium (2D)3.4 (1.6-4.0cm)IVSd1.2 (0.7-1.1cm) LVDd4.4 (3.9-5.9cm)PWd1.3 (0.7-1.1cm) LVDs2.9 (2.5-4.0cm)FS (%) 33.9 % LVEF (%)63.1 (>50%) M-Mode DIMENSIONS Aortic Root3.80 (2.2-3.7cm)Aortic Cusp Exc.2.00 (1.5-2.0cm) Aortic Valve AoV Peak Ocwilpig066.0cm/Jerry Peak GR.7mmHg Mitral Valve MV E Pjffmuei73.1cm/sMV A Dfthknbt54.5cm/sE/A ratio0.9 TDI Lateral E' Peak V9.26cm/sMedial E' Peak V7.31cm/sE/Lateral E'7.5 E/Medial E'9.5 Pulmonary Valve PV Peak Gbzrxmys82.3cm/sPV Peak Grad.3mmHg Tricuspid Valve TR Peak Rfybsqzu847df/sRAP [id number] Peak Gr.23mmHg [id number] LEFT VENTRICLE The left ventricle is normal size. There is mild concentric left ventricular hypertrophy. The left ventricular function is normal. The left ventricular ejection fraction is within the normal range. Ej.Fr:60-65% RIGHT VENTRICLE The right ventricle is normal size. The right ventricular systolic function is normal. ATRIA The left atrium size is normal. AORTIC VALVE The aortic valve is normal in structure. MITRAL VALVE Mitral regurgitation is trace. TRICUSPID VALVE There is trace tricuspid regurgitation. RVSP 33mm.Hg. Very Mild Pulmonary Hypertension. PERICARDIAL EFFUSION There is no pericardial effusion. <Conclusion> The left ventricle is normal size. There is mild concentric left ventricular hypertrophy. The left ventricular ejection fraction is within the normal range. Ej.Fr:60-65% The right ventricle is normal size. The right ventricular systolic function is normal. The left atrium size is normal. The aortic valve is normal in structure. Mitral regurgitation is trace. There is trace tricuspid regurgitation. RVSP 33mm.Hg. Very Mild Pulmonary Hypertension. There is no pericardial effusion.
--- NOTE | 2017-09-27 12:05 | CT ---
PROCEDURE: CTA HEAD AND NECK WITH CONTRAST HISTORY: r/o thrombosis COMPARISON: None available. TECHNIQUE: Initial noncontrast head CT was performed. Subsequently, CT angiogram of the head and neck were performed after the intravenous administration of 80 mL of Omnipaque 350. Contiguous 1.5mm thick images were obtained in the axial plane of the neck. 2-D coronal and sagittal MPR images were obtained. Imaging postprocessing was performed with 3-D images also obtained. A delayed contrast head CT was also obtained. This CT exam was performed using one or more of the following dose reduction techniques: Automated exposure control, adjustment of the mA and/or kV according to patient size, and/or use of iterative reconstruction technique. Contrast dose: 100 mL Omnipaque 350 Radiation dose: Total exam DLP = 675.14 mGy-cm. FINDINGS: HEAD: Right: The intracranial internal carotid artery, and anterior and middle cerebral arteries are widely patent. Left: The intracranial internal carotid artery, and anterior and middle cerebral arteries are widely patent. Posterior circulation: The visualized intracranial vertebral arteries, basilar artery and posterior cerebral arteries are widely patent. There is no endoluminal filling defect to suggest thrombus. There is no intracranial saccular aneurysm. There is no abnormal enhancement on the postcontrast CT. NECK: There is a three vessel aortic arch. There is no stenosis at the origins of the great vessels at the level of the aortic arch. Right Carotid: On the right, the common carotid, internal carotid and external carotid arteries are widely patent. There is no hemodynamically significant stenosis in the internal carotid artery by NASCET criteria. Left Carotid: On the left, the common carotid, internal carotid and external carotid arteries are widely patent.There is no hemodynamically significant stenosis in the internal carotid arteries. There is no hemodynamically significant stenosis in the internal carotid artery by NASCET criteria. The vertebral arteries are widely patent. The right vertebral artery is hypoplastic, an anatomic variant. The visualized soft tissues of the neck are normal. The visualized brain and cervical spine are within normal limits. The lung apices are clear. IMPRESSION: 1. No evidence of endoluminal thrombus,occlusion or definite significant stenosis in the intracranial arteries. 2. No evidence of hemodynamically significant stenosis in the internal carotid arteries. 3. Patent bilateral vertebral arteries.
--- NOTE | 2017-09-27 16:47 | CP.PCM.PN ---
<Justice Mujica - Last Filed: 09/27/17 16:50> Subjective - Date & Time of Evaluation Date of Evaluation: 09/27/17 Time of Evaluation: 16:46 - Subjective Subjective: Justice Mujica D.O PGY-1, Internal Medicine progress note for Dr. Brennan Patient was examined at bedside, no acute overnight events. Patient still complains of dizziness but states that it has improved a lot since yesterday. Patient is no longer nauseous, he tolerated dinner and breakfast. and daughter was at bedside, we updated them on his medical plan. Denies fevers, chills, chest pain, shortness of breath, abdominal pain, N/V/D. Objective - Vital Signs/Intake and Output Vital Signs (last 24 hours): Temp Pulse Resp BP Pulse Ox 98.4 F 93 H 20 115/72 94 L 09/27/17 16:40 09/27/17 16:40 09/27/17 16:40 09/27/17 16:40 09/27/17 16:40 Intake and Output: 09/27/17 09/27/17 06:59 18:59 Intake Total 240 Output Total 400 Balance -160 - Medications Medications: Current Medications Acetaminophen (Tylenol 325mg Tab) 325 mg PO DAILY PRN PRN Reason: Headache Last Admin: 09/26/17 20:08 Dose: 325 mg Amlodipine Besylate (Norvasc) 5 mg PO DAILY [facility] Last Admin: 09/27/17 09:45 Dose: 5 mg Aspirin (Aspirin Chewable) 81 mg PO DAILY [facility] Last Admin: 09/27/17 09:45 Dose: 81 mg Gemfibrozil (Lopid) 600 mg PO BID [facility] Last Admin: 09/27/17 09:44 Dose: 600 mg Meclizine HCl (Antivert) 25 mg PO TID [facility] Last Admin: 09/27/17 14:28 Dose: 25 mg Multivitamins/Minerals (Therapeutic-M Tab) 1 tab PO DAILY [facility] Last Admin: 09/27/17 09:44 Dose: 1 tab Ondansetron HCl (Zofran Inj) 4 mg IVP Q6H PRN PRN Reason: Nausea/Vomiting Pantoprazole Sodium (Protonix Inj) 40 mg IVP DAILY [facility] Last Admin: 09/27/17 09:45 Dose: 40 mg - Labs Labs: 09/27/17 05:30 09/27/17 05:30 PT 11.8 SECONDS (9.4-12.5) 09/26/17 06:40 INR 1.03 09/26/17 06:40 APTT 24.4 Seconds (25.1-36.5) L 09/26/17 06:40 - Constitutional Appears: No Acute Distress - Head Exam Head Exam: ATRAUMATIC, NORMAL INSPECTION - Eye Exam Eye Exam: Normal appearance - ENT Exam ENT Exam: Mucous Membranes Moist - Respiratory Exam Respiratory Exam: Clear to Ausculation Bilateral. absent: Rales, Rhonchi, Wheezes - Cardiovascular Exam Cardiovascular Exam: REGULAR RHYTHM, +S1, +S2. absent: Gallop, Rubs, Murmur - GI/Abdominal Exam GI & Abdominal Exam: Soft, Normal Bowel Sounds Additional comments: mild epigastric tenderness - Extremities Exam Extremities Exam: absent: Calf Tenderness, Pedal Edema - Neurological Exam Neurological Exam: Alert, Awake, Oriented x3 - Psychiatric Exam Psychiatric exam: Normal Affect, Normal Mood - Skin Skin Exam: Dry, Intact, Warm Assessment and Plan - Assessment and Plan (Free Text) Assessment: Patient is a 57 year old male with PMH of HTN and HLD and is admitted for dizziness and vomiting, also to rule out CVA. Plan: Dizziness and vomiting - most likely secondary to BPPV vs vertigo - need to rule out CVA - NIHSS score was 0 in ED- CVA is likely not cause of symptoms - Head CT: unremarkable - Head and neck CTA: no evidence of occlusion of intracranial arteries. No significant stenosis of ICA. Patent bilateral vertebral arteries - 2D echo: LVEF 60-65% - PT/OT: recommended patient to stay 1 more night and discharge tomorrow with home PT - Neurology consulted, Dr. Gonzalez - As per neuro, patient can be discharged on Meclizine. He should follow up with ENT; family provided name of Dr. Herminio Cook (ENT, [facility], ) who they could follow-up with. We recommend for patient to have VNG test and further vestibular work up to evaluate for inner ear abnormalities. - c/w Meclizine 25mg PO TID - passed bedside speech and swallow - started ASA 81mg - Zofran 4mg IV Q6H PRN - Brain MRI: unremarkable - Abdomen u/s: diffuse fatty infiltration of the liver - abd/pelvis CT: unremarkable History of hypertension - c/w home medication Norvasc 5mg QD - continue to monitor blood pressure History of hyperlipidemia - continue with home medication Gemfibrozil 600mg BID - Lipid panel: WNL GI/DVT prophylaxis: Protonix and SCD's Patient seen, case reviewed, and plan approved by attending physician, Dr. Brennan <Luis Brennan - Last Filed: 09/27/17 17:16> Objective - Vital Signs/Intake and Output Vital Signs (last 24 hours): Temp Pulse Resp BP Pulse Ox 98.4 F 93 H 20 115/72 94 L 09/27/17 16:40 09/27/17 16:40 09/27/17 16:40 09/27/17 16:40 09/27/17 16:40 Intake and Output: 09/27/17 09/27/17 06:59 18:59 Intake Total 240 Output Total 400 Balance -160 - Medications Medications: Current Medications Acetaminophen (Tylenol 325mg Tab) 325 mg PO DAILY PRN PRN Reason: Headache Last Admin: 09/26/17 20:08 Dose: 325 mg Amlodipine Besylate (Norvasc) 5 mg PO DAILY [facility] Last Admin: 09/27/17 09:45 Dose: 5 mg Aspirin (Aspirin Chewable) 81 mg PO DAILY [facility] Last Admin: 09/27/17 09:45 Dose: 81 mg Gemfibrozil (Lopid) 600 mg PO BID [facility] Last Admin: 09/27/17 09:44 Dose: 600 mg Meclizine HCl (Antivert) 25 mg PO TID [facility] Last Admin: 09/27/17 14:28 Dose: 25 mg Multivitamins/Minerals (Therapeutic-M Tab) 1 tab PO DAILY [facility] Last Admin: 09/27/17 09:44 Dose: 1 tab Ondansetron HCl (Zofran Inj) 4 mg IVP Q6H PRN PRN Reason: Nausea/Vomiting Pantoprazole Sodium (Protonix Inj) 40 mg IVP DAILY [facility] Last Admin: 09/27/17 09:45 Dose: 40 mg - Labs Labs: 09/27/17 05:30 09/27/17 05:30 PT 11.8 SECONDS (9.4-12.5) 09/26/17 06:40 INR 1.03 09/26/17 06:40 APTT 24.4 Seconds (25.1-36.5) L 09/26/17 06:40 Attending/Attestation - Attestation I have personally seen and examined this patient.: Yes I have fully participated in the care of the patient.: Yes I have reviewed all pertinent clinical information, including history, physical exam and plan: Yes Notes (Text): 09/27/17 17:14 57 year old male with past medical history of hypertension and dyslipidemia who presented with complaint of dizziness with intractable nausea/vomiting. CT head was negative for acute findings. MRI brain and CTA head/neck were unremarkable as well. CT abd/pelvis was negative and US abdomen showed fatty liver. He is on meclizine and dizziness is improving. Nausea/vomiting have resolved. Neurology evaluation was appreciated; recommended outpatient ENT follow up. PT evaluation was appreciated as well; recommended to monitor for one more day as patient is still unsteady this afternoon. Luis Brennan MD Hospitalist.
[2017-09-28 06:52] VITALS: BP 124/80; PULSE 75; TEMP 98.1; O2SAT 92
[2017-09-28 07:35] LABS: HEMOGLOBIN 14.6 g/dL (14.0-18.0); MEAN CELL VOLUME 78.2 fl (80.0-105.0); MEAN CORPUSCULAR HEMOGLOBIN 25.9 pg (25.0-35.0); MEAN CORPUSCULAR HGB CONC 33.2 g/dl (31.0-37.0); RBC 5.63 10^6/uL (3.5-6.1); RED CELL DISTRIBUTION WIDTH 13.2 % (11.5-14.5)
[2017-09-28 07:46] LABS: ALB/GLOB RATIO 1.3 (1.1-1.8); ALBUMIN 4.1 g/dL (3.0-4.8); ALT/SGPT 36 U/L (7-56); AST/SGOT 20 U/L (17-59); BLOOD UREA NITROGEN 10 mg/dL (7-21); CALCIUM 9.3 mg/dL (8.4-10.5); GFR AFRICAN-AMERICAN > 60; GFR NON-AFRICAN AMERICAN > 60
[2017-09-28] MEDS: Multivitamin With Minerals Tab PO SCH (10:22)
--- NOTE | 2017-09-28 11:09 | CP.PCM.DIS ---
Provider - Provider Date of Admission: 09/26/17 15:51 Attending physician: Imani Rangel DO Primary care physician: Fidencio Alvarez MD Time Spent in preparation of Discharge (in minutes): 45 Diagnosis - Discharge Diagnosis (1) Dizziness Status: Resolved Priority: Medium (2) Nausea Status: Resolved Priority: Medium (3) HTN (hypertension) Status: Chronic Priority: Medium (4) HLD (hyperlipidemia) Status: Chronic Priority: Medium Hospital Course - Lab Results Lab Results: Most Recent Lab Values WBC 3.0 10^3/ul (4.5-11.0) L D 09/28/17 07:00 RBC 5.63 10^6/uL (3.5-6.1) 09/28/17 07:00 Hgb 14.6 g/dL (14.0-18.0) 09/28/17 07:00 Hct 44.0 % (42.0-52.0) 09/28/17 07:00 MCV 78.2 fl (80.0-105.0) L 09/28/17 07:00 MCH 25.9 pg (25.0-35.0) 09/28/17 07:00 MCHC 33.2 g/dl (31.0-37.0) 09/28/17 07:00 RDW 13.2 % (11.5-14.5) 09/28/17 07:00 Plt Count 172 10^3/uL (120.0-450.0) 09/28/17 07:00 MPV 11.0 fl (7.0-11.0) 09/28/17 07:00 Gran % 61.8 % (50.0-68.0) 09/26/17 06:40 Lymph % (Auto) 29.9 % (22.0-35.0) 09/26/17 06:40 [place] % (Auto) 7.4 % (1.0-6.0) H 09/26/17 06:40 Eos % (Auto) 0.6 % (1.5-5.0) L 09/26/17 06:40 Baso % (Auto) 0.3 % (0.0-3.0) 09/26/17 06:40 Gran # 1.92 (1.4-6.5) 09/26/17 06:40 Lymph # (Auto) 0.9 (1.2-3.4) L 09/26/17 06:40 [place] # (Auto) 0.2 (0.1-0.6) 09/26/17 06:40 Eos # (Auto) 0.0 (0.0-0.7) 09/26/17 06:40 Baso # (Auto) 0.01 K/mm3 (0.0-2.0) 09/26/17 06:40 PT 11.8 SECONDS (9.4-12.5) 09/26/17 06:40 INR 1.03 09/26/17 06:40 APTT 24.4 Seconds (25.1-36.5) L 09/26/17 06:40 Sodium 143 mmol/L (132-148) 09/28/17 07:00 Potassium 4.1 mmol/L (3.6-5.0) 09/28/17 07:00 Chloride 104 mmol/L (98-107) 09/28/17 07:00 Carbon Dioxide 26 mmol/L (21-33) 09/28/17 07:00 Anion Gap 16 (10-20) 09/28/17 07:00 BUN 10 mg/dL (7-21) 09/28/17 07:00 Creatinine 0.6 mg/dl (0.8-1.5) L 09/28/17 07:00 Est GFR ( Amer) > 60 09/28/17 07:00 Est GFR (Non-Af Amer) > 60 09/28/17 07:00 Random Glucose 102 mg/dL (70-110) 09/28/17 07:00 Hemoglobin A1c 6.1 % (4.2-6.5) 09/27/17 05:30 Calcium 9.3 mg/dL (8.4-10.5) 09/28/17 07:00 Phosphorus 3.9 mg/dL (2.5-4.5) 09/28/17 07:00 Magnesium 2.2 mg/dL (1.7-2.2) 09/28/17 07:00 Total Bilirubin 0.6 mg/dL (0.2-1.3) 09/28/17 07:00 AST 20 U/L (17-59) 09/28/17 07:00 ALT 36 U/L (7-56) 09/28/17 07:00 Alkaline Phosphatase 61 U/L (38-126) 09/28/17 07:00 Lactate Dehydrogenase 374 U/L (333-699) 09/26/17 06:40 Total Creatine Kinase 65 U/L (35-230) 09/26/17 06:40 Troponin I < 0.01 ng/mL 09/26/17 06:40 Total Protein 7.1 g/dL (5.8-8.3) 09/28/17 07:00 Albumin 4.1 g/dL (3.0-4.8) 09/28/17 07:00 Globulin 3.0 gm/dL 09/28/17 07:00 Albumin/Globulin Ratio 1.3 (1.1-1.8) 09/28/17 07:00 Triglycerides 161 mg/dL (35-160) H 09/27/17 05:30 Cholesterol 149 mg/dL (130-200) 09/27/17 05:30 LDL Cholesterol Direct 91 mg/dL (0-129) 09/27/17 05:30 HDL Cholesterol 29 mg/dL (29-60) 09/27/17 05:30 Amylase 82 U/L (35-125) 09/26/17 06:40 Lipase 37 U/L (23-300) 09/26/17 06:40 Urine Color Yellow (YELLOW) 09/26/17 12:50 Urine Appearance Clear (CLEAR) 09/26/17 12:50 Urine pH 7.0 (4.7-8.0) 09/26/17 12:50 Ur Specific [place] 1.020 (1.005-1.035) 09/26/17 12:50 Urine Protein Negative mg/dL (<30 mg/dL) 09/26/17 12:50 Urine Glucose (UA) Negative mg/dL (NEGATIVE) 09/26/17 12:50 Urine Ketones Negative mg/dL (NEGATIVE) 09/26/17 12:50 Urine Blood Negative (NEGATIVE) 09/26/17 12:50 Urine Nitrate Negative (NEGATIVE) 09/26/17 12:50 Urine Bilirubin Negative (NEGATIVE) 09/26/17 12:50 Urine Urobilinogen 0.2 E.U./dL (<1 E.U./dL) 09/26/17 12:50 Ur Leukocyte Esterase Negative Margie/uL (NEGATIVE) 09/26/17 12:50 - Hospital Course Hospital Course: Patient is a 57 year old male with PMH of HTN and HLD and is admitted for dizziness and vomiting, also to rule out CVA. NIHSS score was 0 in ED. Patient was treated with acetaminophen, amlodipine, aspirin, gemfibrozil, meclizine, zofran, and protonix. During the course of his hospital stay, patient got an EKG that showed NSR at 79 bpm, and no signs of ischemia. Chest xray showed no acute disease. Head CT was unremarkable, head and neck CTA: no evidence of occlusion of intracranial arteries, no significant stenosis of ICA, and patent bilateral vertebral arteries. 2D echo showed LVEF 60-65%. Brain MRI was unremarkable. Abdomen ultrasound showed diffuse fatty infiltration of the liver , Abd/pelvis CT was unremarkable. Neurology (Dr. Gonzalez) was consulted and believed that a CVA event was unlikely. She recommended the patient to continue with meclizine and the patient to have VNG test and further vestibular work up to evaluate for inner ear abnormalities outpatient. Patient instructed to continue home medications upon discharge: meclizine, gemfibrozil, and amlodipine. Patient was also instructed to take new medication zofran as needed to help treat his nausea and vomiting. He was educated on the correct way to take medications and to follow up with his primary doctor within 3-5 days of discharge, Dr. Alvarez. He was also instructed to follow up with ENT doctor Dr. Herminio Cook within 1-2 weeks of discharge. Patient was instructed to resume activity as tolerated and to work with home physical therapy. Patient further informed to return to the ED for worsening or newly concerning symptoms. Patient is now medically stable for discharge. Discharge Exam - Head Exam Head Exam: ATRAUMATIC, NORMAL INSPECTION - Eye Exam Eye Exam: Normal appearance - ENT Exam ENT Exam: Mucous Membranes Moist - Respiratory Exam Respiratory Exam: Clear to PA & Lateral. absent: Rales, Rhonchi, Wheezes, Respiratory Distress - Cardiovascular Exam Cardiovascular Exam: REGULAR RHYTHM, +S1, +S2. absent: Gallop, Rubs, Systolic Murmur - GI/Abdominal Exam GI & Abdominal Exam: Normal Bowel Sounds, Soft. absent: Tenderness - Extremities Exam Additional comments: no calf tenderness or pedal edema - Neurological Exam Neurological exam: Alert, Oriented x3 - Psychiatric Exam Psychiatric exam: Normal Affect, Normal Mood - Skin Skin Exam: Dry, Intact, Normal Color, Warm Discharge Plan - Discharge Medications Prescriptions: Ondansetron ODT [Zofran ODT] 4 mg PO DAILY PRN #5 odt PRN Reason: Nausea/Vomiting - Follow Up Plan Condition: FAIR Disposition: HOME/ ROUTINE Instructions: Acute Abdomen (Belly Pain), Adult (DC) Additional Instructions: You are medically stable for discharge. You were evaluated by our neurologist who has also deemed you medically stable for discharge. You were evaluated for dizziness. Dangerous etiologies were excluded (imaging concluded you did not have a stroke). The next step for you is to follow-up with a ENT doctor, Dr Herminio Cook ([facility], ) so he can further evaluate you for the dizziness. Please ask him about a "VNG" test to evaluate for inner-ear abnormalities. Ask him about new medications which could help to control your dizziness. Please continue your normal home medications which include meclizine, gemfibrozil, amlodipine and multivitamin. You will be given a script to help treat your nausea and vomiting, please take the medication as instructed: 1. Zofran 4mg odt, please take 1 tablet only as needed for nausea and vomiting once a day. You will be given 5 tablets only as this is not a permanent cure for your nausea and vomiting. Please follow-up with your primary medical doctor, Dr Alvarez, in 1 week so he can monitor your course. If symptoms return, please go to nearest emergency department. Referrals: Fidencio Alvarez MD [Primary Care Provider] - Herminio Cook MD [Medical Doctor] -
== END 2017-09-28 12:43 | disposition home or self-care (01) ==
LOC: ED 06:03 → ERH 15:51 → 3RNO 19:15
PROVIDERS: ADMIT Hospitalist; ATTEND Hospitalist
DX: R42 Dizziness and giddiness (principal); I10 Essential (primary) hypertension; R11.0 Nausea; E78.00 Pure hypercholesterolemia, unspecified; E78.5 Hyperlipidemia, unspecified; I44.4 Left anterior fascicular block; K76.0 Fatty (change of) liver, not elsewhere classified; R29.700 NIHSS score 0; Z82.49 Family history of ischemic heart disease and other diseases of the circulatory system
CPT/HCPCS: 36415; 70450; 70496; 70498; 70553; 71045; 74177; 76700; 80053; 80061; 81003; 82150; 82550; 83036; 83615; 83690; 83735; 84100; 84484; 85025; 85027; 85610; 85730; 87040; 93005; 93306; 96374; 96375; 96376; 97116; 97162; 97530; 99285; A9579; C9113; G0378; G8978; G8979; J2270; J2405; J2765; J7030; Q9967